=== PATIENT | male | born 1965 | race Caucasian/White ===

== ENCOUNTER 2025-07-04 05:46 | Day surgery (SDC) | payer OTHER, SELFPAY ==
[2025-07-01 13:33] VITALS: BMI 29.2
[2025-07-04] VITALS (7 sets, daily range): BP systolic 100–133; BP diastolic 65–89; BMI 29.2
[2025-07-04] MEDS: TYLENOL 1000 MG PO (06:22)
[2025-07-04] MEDS: CELEBREX 200 MG PO (06:22)
[2025-07-04] MEDS: NORMOSOL-R/PLASMALYTE-A 1000 IV (06:30)
== END 2025-07-04 09:15 | disposition home or self-care (01) ==
LOC: SDS 05:46
PROVIDERS: ATTENDING PHYSICIAN Specialist; FAMILY PHYSICIAN Internal Medicine
DX: S83.231A Complex tear of medial meniscus, current injury, right knee, initial encounter (principal); X58.XXXA Exposure to other specified factors, initial encounter; M23.41 Loose body in knee, right knee
CPT/HCPCS: 29881; 36415; 93005

== ENCOUNTER → 2025-07-16 11:38 | Outpatient (REF) | payer OTHER, SELFPAY | LOC: MRI 3T 11:38 | PROVIDERS: ATTENDING PHYSICIAN Orthopaedic Surgery; FAMILY PHYSICIAN Internal Medicine | DX: M25.512 Pain in left shoulder (principal); S46.092D Other injury of muscle(s) and tendon(s) of the rotator cuff of left shoulder, subsequent encounter | CPT/HCPCS: 73221 ==